=== PATIENT | female | born 1965 | race Caucasian/White ===

== ENCOUNTER → 2016-09-27 | Outpatient (REF) | payer OTHER | LOC: M LAB REF 17:33 | PROVIDERS: ATTEND Physician Assistant | DX: J02.9 Acute pharyngitis, unspecified (principal) ==

== ENCOUNTER → 2016-10-10 | Outpatient (REF) | payer OTHER ==
[2016-10-10 19:57] LABS: MEAN CORPUSCULAR HEMOGLOBIN 32.7 pg (27.0-33.0); MEAN CORPUSCULAR HGB CONC 34.3 g/dl (32.0-36.5); MEAN CORPUSCULAR VOLUME 95.4 fl (80.0-96.0); RED CELL DISTRIBUTION WIDTH 12.1 % (11.5-14.5); WHITE BLOOD COUNT 7.9 K/mm3 (4.0-10.0)
[2016-10-10 20:18] LABS: ALBUMIN 4.1 GM/DL (3.2-5.2); ALBUMIN/GLOBULIN RATIO 1.05 (1.00-1.93); ALKALINE PHOSPHATASE 71 U/L (45-117); ALT/SGPT 78 U/L (12-78); ANION GAP 10 MEQ/L (8-16); AST/SGOT 33 U/L (15-37); BILIRUBIN,TOTAL 0.3 MG/DL (0.2-1.0); BLOOD UREA NITROGEN 23 MG/DL (7-18); CALCIUM LEVEL 8.8 MG/DL (8.5-10.1); CARBON DIOXIDE LEVEL 29 MEQ/L (21-32); CHLORIDE LEVEL 101 MEQ/L (98-107); CHOLESTEROL LEVEL 229 MG/DL (<200); CREATININE FOR GFR 0.94 MG/DL (0.55-1.02); GLOMERULAR FILTRATION RATE > 60.0 (>51); GLUCOSE, FASTING 101 MG/DL (70-105); POTASSIUM SERUM 4.4 MEQ/L (3.5-5.1); SODIUM LEVEL 140 MEQ/L (136-145); TRIGLYCERIDES LEVEL 117 MG/DL (<150)
== END ==
LOC: M SFHCLERA 09:06
PROVIDERS: ATTEND Physician Assistant
DX: I10 Essential (primary) hypertension (principal); E78.2 Mixed hyperlipidemia

== ENCOUNTER → 2017-12-31 | Outpatient (REF) | payer OTHER ==
[2017-12-31 11:53] LABS: HEMATOCRIT 39.4 % (36.0-47.0); MEAN CORPUSCULAR HEMOGLOBIN 32.5 pg (27.0-33.0); MEAN CORPUSCULAR HGB CONC 35.5 g/dl (32.0-36.5); MEAN CORPUSCULAR VOLUME 91.4 fl (80.0-96.0); PLATELET COUNT, AUTOMATED 279 10^3/uL (150-450); RED BLOOD COUNT 4.31 10^6/uL (4.00-5.40); RED CELL DISTRIBUTION WIDTH 11.6 % (11.5-14.5); WHITE BLOOD COUNT 8.5 10^3/uL (4.0-10.0)
[2017-12-31 12:21] LABS: ALBUMIN 3.8 GM/DL (3.2-5.2); ALBUMIN/GLOBULIN RATIO 0.86 (1.00-1.93); ALKALINE PHOSPHATASE 70 U/L (45-117); ALT/SGPT 112 U/L (12-78); ANION GAP 7 MEQ/L (8-16); AST/SGOT 59 U/L (7-37); BILIRUBIN,TOTAL 0.5 MG/DL (0.2-1.0); BLOOD UREA NITROGEN 17 MG/DL (7-18); CALCIUM LEVEL 9.1 MG/DL (8.5-10.1); CARBON DIOXIDE LEVEL 31 MEQ/L (21-32); CHLORIDE LEVEL 102 MEQ/L (98-107); CHOLESTEROL LEVEL 244 MG/DL (<200); CHOLESTEROL RISK RATIO 4.979 (<5); CREATININE FOR GFR 0.84 MG/DL (0.55-1.30); GLOMERULAR FILTRATION RATE > 60.0 (>51); GLUCOSE, FASTING 108 MG/DL (70-100); HDL CHOLESTEROL 49 MG/DL (>40); LDL CHOLESTEROL 169.4 MG/DL (<100); NON-HDL-C 195 MG/DL; POTASSIUM SERUM 3.7 MEQ/L (3.5-5.1); SODIUM LEVEL 140 MEQ/L (136-145); TOTAL PROTEIN 8.2 GM/DL (6.4-8.2); TRIGLYCERIDES LEVEL 128 MG/DL (<150)
[2017-12-31 13:41] LABS: ESTIMATED AVERAGE GLUCOSE 120 MG/DL (60-110); HEMOGLOBIN A1c 5.8 %
== END ==
LOC: M SFHCLERA 09:06
DX: R39.15 Urgency of urination (principal); I10 Essential (primary) hypertension; E66.01 Morbid (severe) obesity due to excess calories; E78.2 Mixed hyperlipidemia
CPT/HCPCS: 80053

== ENCOUNTER 2018-05-05 10:04 | Day surgery (SDC) | payer OTHER ==
[2018-05-05] MEDS ORDERED: CARVedilol 6.25 MG TAB As Ordered (10:41)
[2018-05-05] MEDS ORDERED: CARVedilol 6.25 MG TAB PO (11:00)
[2018-05-05] MEDS ORDERED: PROPOFOL 200 MG/20 ML VIAL As Ordered ×2 (11:41)
[2018-05-05] MEDS ORDERED: LIDOCAINE 2% INJ 100 MG/5 ML SDV (FOR ANES.) As Ordered ×3 (11:51→12:03)
== END 2018-05-05 11:57 | disposition home or self-care (01) ==
LOC: M OPP 10:04
DX: Z12.11 Encounter for screening for malignant neoplasm of colon (principal); K57.30 Diverticulosis of large intestine without perforation or abscess without bleeding; K64.8 Other hemorrhoids; I10 Essential (primary) hypertension; Z78.0 Asymptomatic menopausal state; K21.9 Gastro-esophageal reflux disease without esophagitis; R39.15 Urgency of urination; Z79.82 Long term (current) use of aspirin; Z79.899 Other long term (current) drug therapy
CPT/HCPCS: G0121

== ENCOUNTER → 2018-05-26 | Outpatient (CLI) | payer OTHER ==
[2018-05-26 20:12] LABS: BASO % 0.2 % (0.0-1.0); EOS # 0.2 10^3/uL (0.0-0.50); EOS % 2.3 % (0.0-3.0); HEMATOCRIT 39.6 % (36.0-47.0); HEMOGLOBIN 13.7 g/dl (12.0-15.5); IMMATURE GRANULOCYTE % 0.4 % (0-3.0); LYMPH # 2.9 10^3/uL (1.5-4.5); LYMPH % 35.4 % (24.0-44.0); MEAN CORPUSCULAR HEMOGLOBIN 32.4 pg (27.0-33.0); MEAN CORPUSCULAR HGB CONC 34.6 g/dl (32.0-36.5); MEAN CORPUSCULAR VOLUME 93.6 fl (80.0-96.0); MONO # 0.7 10^3/uL (0.0-0.8); MONO % 7.9 % (0.0-5.0); NEUTROPHILS # 4.5 10^3/uL (1.8-7.7); NEUTROPHILS % 53.8 % (36.0-66.0); PLATELET COUNT, AUTOMATED 274 10^3/uL (150-450); RED BLOOD COUNT 4.23 10^6/uL (4.00-5.40); RED CELL DISTRIBUTION WIDTH 11.8 % (11.5-14.5); WHITE BLOOD COUNT 8.3 10^3/uL (4.0-10.0)
[2018-05-26 20:45] LABS: ALBUMIN 3.9 GM/DL (3.2-5.2); ALBUMIN/GLOBULIN RATIO 0.98 (1.00-1.93); ALKALINE PHOSPHATASE 58 U/L (45-117); ALT/SGPT 98 U/L (12-78); ANION GAP 11 MEQ/L (8-16); AST/SGOT 47 U/L (7-37); BILIRUBIN,TOTAL 0.3 MG/DL (0.2-1.0); BLOOD UREA NITROGEN 21 MG/DL (7-18); CALCIUM LEVEL 9.5 MG/DL (8.5-10.1); CARBON DIOXIDE LEVEL 31 MEQ/L (21-32); CHLORIDE LEVEL 101 MEQ/L (98-107); CREATININE FOR GFR 0.86 MG/DL (0.55-1.30); GLOMERULAR FILTRATION RATE > 60.0 (>51); GLUCOSE, FASTING 119 MG/DL (70-100); POTASSIUM SERUM 3.4 MEQ/L (3.5-5.1); SODIUM LEVEL 143 MEQ/L (136-145); TOTAL PROTEIN 7.9 GM/DL (6.4-8.2)
[2018-05-29 00:06] LABS: Lyme Disease IgG/IgM Antibodie <0.91 ISR (0.00-0.90); Lyme Disease IgM Ab Quantitati <0.80 index (0.00-0.79)
== END ==
LOC: M WUC 17:10
DX: R53.83 Other fatigue (principal)
CPT/HCPCS: 84443

== ENCOUNTER → 2018-07-05 | Outpatient (REF) | payer OTHER ==
[2018-07-05 17:59] LABS: ALBUMIN 3.6 GM/DL (3.2-5.2); ALBUMIN/GLOBULIN RATIO 0.88 (1.00-1.93); ALKALINE PHOSPHATASE 66 U/L (45-117); ALT/SGPT 133 U/L (12-78); ANION GAP 8 MEQ/L (8-16); AST/SGOT 57 U/L (7-37); BILIRUBIN,TOTAL 0.4 MG/DL (0.2-1.0); BLOOD UREA NITROGEN 22 MG/DL (7-18); C REACTIVE PROTEIN QUANTITATIV 1.13 MG/DL (0.00-0.30); CALCIUM LEVEL 9.2 MG/DL (8.5-10.1); CARBON DIOXIDE LEVEL 29 MEQ/L (21-32); CHLORIDE LEVEL 101 MEQ/L (98-107); CHOLESTEROL LEVEL 239 MG/DL (<200); CHOLESTEROL RISK RATIO 4.267 (<5); CREATININE FOR GFR 0.88 MG/DL (0.55-1.30); GLOMERULAR FILTRATION RATE > 60.0 (>51); GLUCOSE, FASTING 98 MG/DL (70-100); HDL CHOLESTEROL 56 MG/DL (>40); LDL CHOLESTEROL 159 MG/DL (<100); NON-HDL-C 183 MG/DL; POTASSIUM SERUM 3.3 MEQ/L (3.5-5.1); RHEUMATOID FACTOR QUANT < 10.0 IU/ML (<15.0); SODIUM LEVEL 138 MEQ/L (136-145); TOTAL PROTEIN 7.7 GM/DL (6.4-8.2); TRIGLYCERIDES LEVEL 122 MG/DL (<150)
[2018-07-05 18:06] LABS: BASO % 0.2 % (0.0-1.0); EOS # 0.2 10^3/uL (0.0-0.50); EOS % 1.9 % (0.0-3.0); HEMATOCRIT 38.4 % (36.0-47.0); HEMOGLOBIN 13.5 g/dl (12.0-15.5); IMMATURE GRANULOCYTE % 0.2 % (0-3.0); LYMPH # 3.4 10^3/uL (1.5-4.5); LYMPH % 37.8 % (24.0-44.0); MEAN CORPUSCULAR HEMOGLOBIN 32.4 pg (27.0-33.0); MEAN CORPUSCULAR HGB CONC 35.2 g/dl (32.0-36.5); MEAN CORPUSCULAR VOLUME 92.1 fl (80.0-96.0); MONO # 0.6 10^3/uL (0.0-0.8); MONO % 6.3 % (0.0-5.0); NEUTROPHILS # 4.8 10^3/uL (1.8-7.7); NEUTROPHILS % 53.6 % (36.0-66.0); PLATELET COUNT, AUTOMATED 284 10^3/uL (150-450); RED BLOOD COUNT 4.17 10^6/uL (4.00-5.40); RED CELL DISTRIBUTION WIDTH 11.7 % (11.5-14.5); WHITE BLOOD COUNT 8.9 10^3/uL (4.0-10.0)
[2018-07-05 18:10] LABS: FOLATE 19.7 NG/ML; VITAMIN B12 LEVEL 737 PG/ML
[2018-07-05 18:23] LABS: ESTIMATED AVERAGE GLUCOSE 123 MG/DL (60-110); HEMOGLOBIN A1c 5.9 %
[2018-07-05 18:59] LABS: TOTAL 25(OH) VITAMIN D 31.6 NG/ML (30.0-100.0)
[2018-07-05 19:06] LABS: ERYTHROCYTE SEDIMENTATION RATE 37 mm/hr (0-30)
[2018-07-09 00:24] LABS: CYCLIC CITRULLINATED PEPTIDE 44 units (0-19)
[2018-07-09 00:24] LABS: ANA (HEP2) Positive (.)
== END ==
LOC: M SFHCCAPE 11:15
DX: I10 Essential (primary) hypertension (principal); E78.2 Mixed hyperlipidemia; R73.09 Other abnormal glucose; R40.0 Somnolence; M25.50 Pain in unspecified joint
CPT/HCPCS: 82746

== ENCOUNTER → 2018-07-26 | Outpatient (REF) | payer OTHER ==
[~2018-07-26] MED LIST: AMLO5TAB4 PO; ASPI1TAB15 PO; CARV6.25 PO; CHLO125TA PO; COMPTAB PO; RANI1SYP PO; [UNRECOGNIZED DRUG - CODE] PO
[2018-07-26 19:28] LABS: ALBUMIN 3.7 GM/DL (3.2-5.2); ALT/SGPT 111 U/L (12-78); BILIRUBIN,TOTAL 0.5 MG/DL (0.2-1.0); BLOOD UREA NITROGEN 16 MG/DL (7-18); CALCIUM LEVEL 8.8 MG/DL (8.5-10.1); CARBON DIOXIDE LEVEL 26 MEQ/L (21-32); CHLORIDE LEVEL 102 MEQ/L (98-107); CREATININE FOR GFR 0.89 MG/DL (0.55-1.30); GLOMERULAR FILTRATION RATE > 60.0 (>51); GLUCOSE, FASTING 106 MG/DL (70-100); POTASSIUM SERUM 3.3 MEQ/L (3.5-5.1); SODIUM LEVEL 139 MEQ/L (136-145); TOTAL PROTEIN 7.6 GM/DL (6.4-8.2)
[2018-07-27 09:01] LABS: HEPATITIS B SURFACE ANTIGEN NEGATIVE (NEGATIVE)
[2018-07-27 09:28] LABS: HEPATITIS B CORE ANTIBODY IGM NEGATIVE (NEGATIVE); HEPATITIS C VIRUS ABY INDEX 0.1 INDEX (<0.8)
[2018-07-27 09:30] LABS: HIV 1&2 SCREEN CENTAUR NEGATIVE (NEGATIVE)
[2018-07-27 09:31] LABS: HEPATITIS A ANTIBODY IGM NEGATIVE (NEGATIVE)
[2018-07-28 14:24] LABS: Lyme Disease IgG/IgM Antibodie <0.91 ISR (0.00-0.90); Lyme Disease IgM Ab Quantitati <0.80 index (0.00-0.79)
[2018-08-01 08:06] LABS: HPV HYBRID CAPTURE II Negative (Negative)
== END ==
LOC: M SFHCCAPE 09:02
PROVIDERS: ATTEND Physician Assistant
DX: E87.6 Hypokalemia (principal); R74.8 Abnormal levels of other serum enzymes; Z11.4 Encounter for screening for human immunodeficiency virus [HIV]; R53.83 Other fatigue

== ENCOUNTER → 2018-09-16 | Outpatient (CLI) | payer OTHER ==
[~2018-09-16] MED LIST changes: -AMLO5TAB4 PO; +AMLO5TAB6 PO
--- NOTE | 2018-09-16 13:55 | REPMRS ---
Patient History The patient states she had a clinical breast exam in 06/2018. No known family history of cancer. 3D TOMOSYNTHESIS WAS PERFORMED. Digital Woman Screen Mammo: September 16, 2018 - Exam #: [id number] Bilateral CC and MLO view(s) were taken. Technologist: Yana Chaudhry Technologist Prior study comparison: February 28, 2014, digital mammo diagnostic bilateral, performed at [facility]. February 12, 2014, bilateral digital mammo screening bilat, performed at [facility]. FINDINGS: There are scattered fibroglandular densities. There has been no change in the appearance of the mammogram from the prior studies. There is a mild amount of residual fibroglandular tissue which is fairly symmetric. There is no interval development of dominant mass, architectural distortion, or clustered microcalcification suggestive of malignancy. Assessment: BI-RADS/ACR category 1 mammogram. Negative Mammogram. Recommendation Routine screening mammogram in 1 year (for women over age 40). This mammogram was interpreted with the aid of an FDA-approved computer-aided dectection system. Electronically Signed By: Aleksey Campuzano MD 09/16/18 [id number]
== END ==
LOC: M WHC 13:08
PROVIDERS: ATTEND Physician Assistant
DX: Z12.31 Encounter for screening mammogram for malignant neoplasm of breast (principal)

== ENCOUNTER → 2018-10-04 | Outpatient (REF) | payer OTHER ==
[2018-10-04 18:41] LABS: ALBUMIN 3.8 GM/DL (3.2-5.2); ALT/SGPT 85 U/L (12-78); BILIRUBIN,DIRECT 0.1 MG/DL (0.0-0.2); BILIRUBIN,TOTAL 0.6 MG/DL (0.2-1.0); BLOOD UREA NITROGEN 17 MG/DL (7-18); CARBON DIOXIDE LEVEL 27 MEQ/L (21-32); CHLORIDE LEVEL 100 MEQ/L (98-107); CHOLESTEROL LEVEL 259 MG/DL (<200); CHOLESTEROL RISK RATIO 4.709 (<5); CREATININE FOR GFR 0.85 MG/DL (0.55-1.30); GLOMERULAR FILTRATION RATE > 60.0 (>51); GLUCOSE, FASTING 99 MG/DL (70-100); HDL CHOLESTEROL 55 MG/DL (>40); LDL CHOLESTEROL 172 MG/DL (<100); NON-HDL-C 204 MG/DL; POTASSIUM SERUM 3.3 MEQ/L (3.5-5.1); SODIUM LEVEL 137 MEQ/L (136-145); TOTAL PROTEIN 8.1 GM/DL (6.4-8.2); TRIGLYCERIDES LEVEL 162 MG/DL (<150)
[2018-10-04 18:58] LABS: BASO % 0.4 % (0.0-1.0); EOS # 0.2 10^3/uL (0.0-0.50); EOS % 1.9 % (0.0-3.0); HEMATOCRIT 39.4 % (36.0-47.0); HEMOGLOBIN 14.1 g/dl (12.0-15.5); LYMPH # 3.1 10^3/uL (1.5-4.5); LYMPH % 40.3 % (24.0-44.0); MEAN CORPUSCULAR HEMOGLOBIN 32.6 pg (27.0-33.0); MEAN CORPUSCULAR HGB CONC 35.8 g/dl (32.0-36.5); MONO # 0.6 10^3/uL (0.0-0.8); MONO % 7.4 % (0.0-5.0); NEUTROPHILS # 3.9 10^3/uL (1.8-7.7); NEUTROPHILS % 49.9 % (36.0-66.0); PLATELET COUNT, AUTOMATED 281 10^3/uL (150-450); RED BLOOD COUNT 4.33 10^6/uL (4.00-5.40); WHITE BLOOD COUNT 7.8 10^3/uL (4.0-10.0)
[2018-10-04 19:33] LABS: HEMOGLOBIN A1c 6.1 %
== END ==
LOC: M SFHCCAPE 09-29 07:36
PROVIDERS: ATTEND Physician Assistant
DX: E78.2 Mixed hyperlipidemia (principal); R74.8 Abnormal levels of other serum enzymes

== ENCOUNTER → 2019-01-12 | Outpatient (CLI) | payer OTHER ==
--- NOTE | 2019-01-12 15:26 | REP ---
Clinical: Pain and swelling. Technique: AP, lateral, bilateral oblique views of the right and left hand. Findings: Right hand demonstrates age-related degenerative changes along with minimal arthritic changes at the first metacarpophalangeal joint including subchondral sclerosis, joint space narrowing and very early marginal spurring. Left hand demonstrates age-related degenerative changes along with m mild arthritic changes at the first metacarpophalangeal joint including subchondral sclerosis, joint space narrowing and very early marginal spurring. Impression: Mild age-related degenerative changes as noted above. Electronically Signed by Michael Angel MD 01/12/2019 03:18 P
[2019-01-12 17:11] LABS: COMPLEMENT C3 175 MG/DL (90-180); COMPLEMENT C4 36 MG/DL (10-40)
[2019-01-12 17:37] LABS: TOTAL PROTEIN,RANDOM URINE 18.8 MG/DL (0.0-12.0)
[2019-01-18 18:27] LABS: ANA (HEP2) Negative (.); ANTI DS-DNA AB <1:10 titer (.); RNP ANTIBODY 0.2 AI (0.0-0.9); SMITHS ANTIBODY < 0.2 AI (0.0-0.9); SSA SJOGRENS A <0.2 AI (0.0-0.9); SSB SJOGRENS B <0.2 AI (0.0-0.9)
== END ==
LOC: M WUC 14:24
PROVIDERS: ATTEND Internal Medicine Rheumatology
DX: M72.0 Palmar fascial fibromatosis [Dupuytren] (principal); M19.041 Primary osteoarthritis, right hand; M19.042 Primary osteoarthritis, left hand

== ENCOUNTER → 2019-02-14 | Outpatient (REF) | payer OTHER ==
[2019-02-14 16:44] LABS: ALBUMIN 3.6 GM/DL (3.2-5.2); ALT/SGPT 103 U/L (12-78); BILIRUBIN,TOTAL 0.3 MG/DL (0.2-1.0); BLOOD UREA NITROGEN 22 MG/DL (7-18); CALCIUM LEVEL 8.7 MG/DL (8.5-10.1); CARBON DIOXIDE LEVEL 27 MEQ/L (21-32); CHLORIDE LEVEL 102 MEQ/L (98-107); CHOLESTEROL LEVEL 225 MG/DL (<200); CHOLESTEROL RISK RATIO 4.411 (<5); CREATININE FOR GFR 0.92 MG/DL (0.55-1.30); GLOMERULAR FILTRATION RATE > 60.0 (>51); GLUCOSE, FASTING 114 MG/DL (70-100); HDL CHOLESTEROL 51 MG/DL (>40); LDL CHOLESTEROL 145 MG/DL (<100); NON-HDL-C 174 MG/DL; POTASSIUM SERUM 3.2 MEQ/L (3.5-5.1); SODIUM LEVEL 139 MEQ/L (136-145); TOTAL PROTEIN 7.6 GM/DL (6.4-8.2); TRIGLYCERIDES LEVEL 145 MG/DL (<150)
[2019-02-14 16:49] LABS: HEMOGLOBIN A1c 6.4 %
[2019-02-14 16:56] LABS: BASO % 0.4 % (0.0-1.0); EOS # 0.2 10^3/uL (0.0-0.50); EOS % 2.9 % (0.0-3.0); HEMATOCRIT 37.4 % (36.0-47.0); HEMOGLOBIN 13.2 g/dl (12.0-15.5); LYMPH # 2.2 10^3/uL (1.5-4.5); LYMPH % 31.9 % (24.0-44.0); MEAN CORPUSCULAR HEMOGLOBIN 32.4 pg (27.0-33.0); MEAN CORPUSCULAR HGB CONC 35.3 g/dl (32.0-36.5); MEAN CORPUSCULAR VOLUME 91.7 fl (80.0-96.0); MONO # 0.5 10^3/uL (0.0-0.8); MONO % 7.3 % (0.0-5.0); NEUTROPHILS # 3.9 10^3/uL (1.8-7.7); NEUTROPHILS % 57.1 % (36.0-66.0); PLATELET COUNT, AUTOMATED 273 10^3/uL (150-450); RED BLOOD COUNT 4.08 10^6/uL (4.00-5.40); WHITE BLOOD COUNT 6.8 10^3/uL (4.0-10.0)
== END ==
LOC: M SFHCCAPE 07:01
PROVIDERS: ATTEND Physician Assistant
DX: E78.2 Mixed hyperlipidemia (principal); E66.01 Morbid (severe) obesity due to excess calories

== ENCOUNTER → 2019-02-28 | Outpatient (REF) | payer OTHER ==
[~2019-02-28] MED LIST changes: +AUGM875T28 PO; +POTA20TA6
[2019-02-28 16:47] LABS: MAGNESIUM LEVEL 1.9 MG/DL (1.8-2.4); POTASSIUM SERUM 3.2 MEQ/L (3.5-5.1)
== END ==
LOC: M SFHCCAPE 07:46
PROVIDERS: ATTEND Physician Assistant
DX: E87.6 Hypokalemia (principal)

== ENCOUNTER → 2019-03-06 | Outpatient (CLI) | payer OTHER ==
[~2019-03-06] MED LIST changes: -AUGM875T28 PO; -POTA20TA6
== END ==
LOC: M WUC 14:44
PROVIDERS: ATTEND Physician Assistant
DX: E87.6 Hypokalemia (principal)

== ENCOUNTER 2019-06-06 08:18 | Emergency (ER) | payer OTHER ==
[~2019-06-06] VITALS: Ht 160 cm; Wt 133.4 kg
[2019-06-06] MEDS ORDERED: POTA20TA6 (08:25)
[2019-06-06] MEDS ORDERED: BENZOCAINE 20% GEL 9GM TUBE (ANBESOL MAX STRENGTH) TOP ONE (08:45)
[2019-06-06] MEDS ORDERED: AUGM875T28 PO (09:17)
[2019-06-06 09:33] VITALS: BP 143/94
== END 2019-06-06 09:37 | disposition home or self-care (01) ==
LOC: M ED 08:18
DX: K02.9 Dental caries, unspecified (principal); Z79.899 Other long term (current) drug therapy

== ENCOUNTER → 2019-09-15 | Outpatient (CLI) | payer OTHER, SELFPAY ==
[~2019-09-15] MED LIST changes: +AUGM875T28 PO; +POTA20TA6
[2019-09-15 10:07] LABS: BASO # 0.1 10^3/uL (0.0-0.2); BASO % 0.7 % (0.0-1.0); EOS # 0.3 10^3/uL (0.0-0.5); EOS % 3.3 % (0.0-3.0); HEMATOCRIT 39.2 % (36.0-47.0); HEMOGLOBIN 13.9 g/dl (12.0-15.5); LYMPH # 2.9 10^3/uL (1.5-5.0); LYMPH % 38.1 % (24.0-44.0); MEAN CORPUSCULAR HEMOGLOBIN 33.2 pg (27.0-33.0); MEAN CORPUSCULAR HGB CONC 35.5 g/dl (32.0-36.5); MEAN CORPUSCULAR VOLUME 93.6 fl (80.0-96.0); MONO # 0.6 10^3/uL (0.0-0.8); MONO % 7.7 % (0.0-5.0); NEUTROPHILS # 3.8 10^3/uL (1.5-8.5); NEUTROPHILS % 49.9 % (36.0-66.0); PLATELET COUNT, AUTOMATED 277 10^3/uL (150-450); RED BLOOD COUNT 4.19 10^6/uL (4.00-5.40); WHITE BLOOD COUNT 7.7 10^3/uL (4.0-10.0)
[2019-09-15 10:45] LABS: ALBUMIN 3.7 GM/DL (3.2-5.2); BILIRUBIN,TOTAL 0.4 MG/DL (0.2-1.0); CALCIUM LEVEL 8.6 MG/DL (8.5-10.1); CHOLESTEROL RISK RATIO 4.215 (<5); CREATININE FOR GFR 1.04 MG/DL (0.55-1.30); GLOMERULAR FILTRATION RATE 58.8 (>51); POTASSIUM SERUM 3.4 MEQ/L (3.5-5.1); THYROID STIMULATING HORMONE 1.89 uIU/ML (0.358-3.740); TOTAL PROTEIN 7.7 GM/DL (6.4-8.2)
[2019-09-15 10:47] LABS: TOTAL 25(OH) VITAMIN D 29.9 NG/ML (30.0-100.0)
== END ==
LOC: M WUC 08:15
PROVIDERS: ATTEND Physician Assistant
DX: I11.0 Hypertensive heart disease with heart failure (principal); E78.2 Mixed hyperlipidemia; E66.01 Morbid (severe) obesity due to excess calories

== ENCOUNTER → 2019-10-26 | Outpatient (CLI) | payer OTHER ==
[2019-10-26 20:14] LABS: CALCIUM LEVEL 9.2 MG/DL (8.5-10.1); CREATININE FOR GFR 1.23 MG/DL (0.55-1.30); GLOMERULAR FILTRATION RATE 48.4 (>51); POTASSIUM SERUM 3.6 MEQ/L (3.5-5.1)
[2019-10-26 20:15] LABS: ALBUMIN 3.9 GM/DL (3.2-5.2); BILIRUBIN,TOTAL 0.4 MG/DL (0.2-1.0); TOTAL PROTEIN 8.1 GM/DL (6.4-8.2)
== END ==
LOC: M WUC 15:24
PROVIDERS: ATTEND Physician Assistant
DX: E87.6 Hypokalemia (principal)

== ENCOUNTER → 2021-01-20 | Outpatient (REF) | payer OTHER ==
[~2021-01-20] MED LIST changes: +AMLO1TAB24 PO; -AMLO5TAB6 PO; +ASPI-546 PO; -ASPI1TAB15 PO
[2021-01-20 16:31] LABS: BASO % 0.4 % (0.0-1.0); EOS # 0.2 10^3/uL (0.0-0.5); EOS % 2.7 % (0.0-3.0); HEMATOCRIT 40.5 % (36.0-47.0); HEMOGLOBIN 13.8 g/dl (12.0-15.5); LYMPH # 2.9 10^3/uL (1.5-5.0); LYMPH % 40.4 % (24.0-44.0); MEAN CORPUSCULAR HEMOGLOBIN 31.9 pg (27.0-33.0); MEAN CORPUSCULAR HGB CONC 34.1 g/dl (32.0-36.5); MEAN CORPUSCULAR VOLUME 93.8 fl (80.0-96.0); MONO # 0.5 10^3/uL (0.0-0.8); MONO % 7.3 % (2.0-8.0); NEUTROPHILS # 3.5 10^3/uL (1.5-8.5); NEUTROPHILS % 48.9 % (36.0-66.0); PLATELET COUNT, AUTOMATED 291 10^3/uL (150-450); RED BLOOD COUNT 4.32 10^6/uL (4.00-5.40); WHITE BLOOD COUNT 7.2 10^3/uL (4.0-10.0)
[2021-01-20 16:48] LABS: HEMOGLOBIN A1c 5.7 %
[2021-01-20 17:15] LABS: ALBUMIN 3.8 GM/DL (3.2-5.2); ALT/SGPT 46 U/L (12-78); BILIRUBIN,TOTAL 0.4 MG/DL (0.2-1.0); BLOOD UREA NITROGEN 19 MG/DL (7-18); CALCIUM LEVEL 9.1 MG/DL (8.5-10.1); CARBON DIOXIDE LEVEL 25 MEQ/L (21-32); CHLORIDE LEVEL 101 MEQ/L (98-107); CHOLESTEROL LEVEL 243 MG/DL (<200); CREATININE FOR GFR 0.79 MG/DL (0.55-1.30); FREE T4 0.97 NG/DL (0.76-1.46); GLOMERULAR FILTRATION RATE > 60.0 (>51); GLUCOSE, FASTING 112 MG/DL (70-100); HDL CHOLESTEROL 54 MG/DL (>40); LDL CHOLESTEROL 158 MG/DL (<100); NON-HDL-C 189 MG/DL; POTASSIUM SERUM 3.5 MEQ/L (3.5-5.1); SODIUM LEVEL 137 MEQ/L (136-145); TOTAL 25(OH) VITAMIN D 21.4 NG/ML (30.0-100.0); TOTAL PROTEIN 7.8 GM/DL (6.4-8.2); TRIGLYCERIDES LEVEL 156 MG/DL (<150)
== END ==
LOC: M SFHCCAPE 07:14
PROVIDERS: ATTEND Physician Assistant
DX: E66.01 Morbid (severe) obesity due to excess calories (principal); Z68.43 Body mass index [BMI] 50.0-59.9, adult; R40.0 Somnolence

== ENCOUNTER → 2021-05-09 | Outpatient (CLI) | payer OTHER ==
--- NOTE | 2021-05-12 16:31 | SLEEPHOME ---
DATE: 05/09/2021 ORDERED BY: NEENA Stallings Diagnostic home sleep testing was performed due to concern for the obstructive sleep apnea syndrome in this patient with a history of nonrestorative sleep and morning headaches. For testing, a nocturnal T3 respiratory monitoring device was used. Continuous record was made of pulse, oxygen saturation, air flow, chest and abdominal strain, and body position. Nine hours and 59 minutes of data were reviewed. There were 8 hours and 41 minutes marked as time in bed. During the interval marked time in bed, there were 81 respiratory events identified of 10 seconds in duration or greater for a respiratory event index of 9.3. The events were primarily obstructive. Baseline pulse rate was 82 beats per minute. Pulse rate ranged 62 to 192. Baseline saturation was 93%. Saturations fell to 82%. Testing was performed in both the supine and nonsupine positions. IMPRESSION: Abnormal home sleep testing with repetitive respiratory events and oxygen desaturations to 82% with a respiratory event index of 9.3 is consistent with the obstructive sleep apnea syndrome. RECOMMENDATION: The patient should be encouraged to undergo a formal sleep evaluation. cc: CHRISTO DOZIER PA-C
== END ==
LOC: M SLEEP HO 13:19
PROVIDERS: ATTEND Nurse Practitioner Family
DX: R06.83 Snoring (principal)

== ENCOUNTER 2021-11-23 12:07 | Emergency (ER) | payer OTHER, SELFPAY ==
[~2021-11-23] VITALS: Ht 160 cm; Wt 128.0 kg
[~2021-11-23 12:07] MED LIST changes: +POTA-151; -POTA20TA6
[2021-11-23 14:48] LABS: BASO % 0.3 % (0.0-1.0); EOS # 0.8 10^3/uL (0.0-0.5); EOS % 8.5 % (0.0-3.0); HEMATOCRIT 37.1 % (36.0-47.0); HEMOGLOBIN 13.3 g/dl (12.0-15.5); LYMPH # 3.3 10^3/uL (1.5-5.0); LYMPH % 33.6 % (24.0-44.0); MEAN CORPUSCULAR HEMOGLOBIN 33.2 pg (27.0-33.0); MEAN CORPUSCULAR HGB CONC 35.8 g/dl (32.0-36.5); MEAN CORPUSCULAR VOLUME 92.5 fl (80.0-96.0); MONO # 0.7 10^3/uL (0.0-0.8); MONO % 6.8 % (2.0-8.0); NEUTROPHILS # 4.9 10^3/uL (1.5-8.5); NEUTROPHILS % 50.6 % (36.0-66.0); PLATELET COUNT, AUTOMATED 275 10^3/uL (150-450); RED BLOOD COUNT 4.01 10^6/uL (4.00-5.40); WHITE BLOOD COUNT 9.7 10^3/uL (4.0-10.0)
[2021-11-23 14:59] LABS: INR 0.93; PROTHROMBIN TIME 12.9 SECONDS (12.7-14.5)
[2021-11-23 15:02] LABS: D-DIMER QUANT 464.01 ng/ml (<500)
[2021-11-23 15:23] LABS: ALBUMIN 3.5 GM/DL (3.2-5.2); ALT/SGPT 64 U/L (12-78); BILIRUBIN,DIRECT 0.1 MG/DL (0.0-0.2); BILIRUBIN,TOTAL 0.3 MG/DL (0.2-1.0); BLOOD UREA NITROGEN 15 MG/DL (7-18); CARBON DIOXIDE LEVEL 28 MEQ/L (21-32); CHLORIDE LEVEL 105 MEQ/L (98-107); CREATININE FOR GFR 0.92 MG/DL (0.55-1.30); FREE T4 0.93 NG/DL (0.76-1.46); GLOMERULAR FILTRATION RATE > 60.0 (>51); GLUCOSE, FASTING 104 MG/DL (70-100); LIPASE 94 U/L (73-393); NT-PRO BNP 113 PG/ML (<125); POTASSIUM SERUM 3.4 MEQ/L (3.5-5.1); SODIUM LEVEL 139 MEQ/L (136-145)
[2021-11-23] MEDS ORDERED: NS 1,000 ML IV ONE (15:25)
[2021-11-23] MEDS ORDERED: ALBUTEROL 90 MCG/ACT 8GM HFA INHALER INH ONE (15:25)
[2021-11-23] MEDS ORDERED: methylPREDNISolone 125MG 2ML VIAL IV ONE (15:25)
[2021-11-23] MEDS ORDERED: ISOVUE-370 76% 100ML VIAL As Ordered ONE (15:30)
[2021-11-23 15:54] LABS: RSV AMPLIFICATION NEGATIVE (NEGATIVE)
[2021-11-23] MEDS ORDERED: VENTAER INH (17:05)
[2021-11-23] MEDS ORDERED: PRED20TA PO (17:05)
[2021-11-23 17:18] VITALS: BP 140/58
== END 2021-11-23 18:15 | disposition home or self-care (01) ==
LOC: M ED 12:07
DX: J20.9 Acute bronchitis, unspecified (principal); E66.9 Obesity, unspecified; I10 Essential (primary) hypertension; K21.9 Gastro-esophageal reflux disease without esophagitis; Z98.61 Coronary angioplasty status; I70.0 Atherosclerosis of aorta; I25.10 Atherosclerotic heart disease of native coronary artery without angina pectoris; Z79.82 Long term (current) use of aspirin; Z79.899 Other long term (current) drug therapy
CPT/HCPCS: 36415; 71046; 71275; 80048; 80076; 83690; 83880; 84439; 84443; 84484; 85025; 85379; 85610; 85730; 87631; 93005; 94640; 96361; 96374; 99284; J2930; Q9967